=== PATIENT | male | born 1990 | race Caucasian/White ===

== ENCOUNTER 2019-12-22 15:30 | Outpatient (RCR) | payer OTHER, SELFPAY ==
--- NOTE | 2019-11-22 17:00 | PTOPEVAL ---
Thank you for referring this patient to [facility]. Please review, sign, date and return this plan of care AARON. Pt referred to therapy due to left knee pain. He requires additional skilled therapy 2x/wk x 4 wk to address poor movement pattern with squats and lunges, soft tissue restrictions and increased pain with daily activities. I agree with and certify that the following plan of care is medically necessary. Referring Physician Date Attending Provider: Chapis Squires NP Referring Provider: *PT Outpatient Evaluation Start: 11/22/19 15:18 Freq: Status: Active Protocol: Document 11/22/19 15:20 CAP (Rec: 11/22/19 16:27 CAP [email or web address]) Therapy Assessment Status Assessment Status Assessment Status Evaluation Outpatient Past Medical History Musculoskeletal History Hx Other Musculoskeletal Disorders Yes: left knee meniscus tear Evaluation Information Problem Diagnosis left knee pain Onset 09/21 Cause squating Subjective Information He reports knee pain due to Query Text:As Reported By Patient/ performing max squating Family activities. He was attempting to squat~500#. He denies popping with the movement, but pain in the knee when it happened. Pain in the top/ bottom of knee and and posterior aspect of knee. He has been icing daily with use of compression sleeve. He has not performed any lifting act with his LE, but cont to perform UE resistance act. Occasionally performs stretching. He was performing bike or running for cardio, but he has not performed cardio since the injury. He has not been performing heavy lifting at work. He has been avoiding use of left LE with squating or getting off low surfaces. He had injured his left knee in high school during pole vaulting activity. He was DX with meniscus injury, but he does not remember if ligaments were torn. He received therapy at the time. He works as an [employer]
--- NOTE | 2019-12-23 08:18 | PTOPEVAL ---
Thank you for referring this patient to [facility]. Please review, sign, date and return this plan of care AARON. Pt has been seen for PT services from 11/22/19-12/22/19 for 9 visits. Pt has improved knee pain, LE strength and performance with high level dynamic and resistance activities. He has reached max potential with skilled therapy with therapy goals achieved. DC skilled PT at this time I agree with and certify that the following plan of care is medically necessary. Referring Physician Date Admitting Provider: Attending Provider: Chapis Squires NP Referring Provider: *PT Outpatient Re-Evaluation/Discharge Start: 11/22/19 15:18 Freq: Status: Active Protocol: Document 12/22/19 15:35 CAP (Rec: 12/22/19 16:01 CAP [email or web address]) Therapy Assessment Status Assessment Status Assessment Status Re-evaluation Outpatient Past Medical History Musculoskeletal History Hx Other Musculoskeletal Disorders Yes: left knee meniscus tear Evaluation Information Problem Diagnosis left knee pain Onset 09/21 Cause squating Subjective Information States he is not having pain Query Text:As Reported By Patient/ with his fitness routine. He Family has been performing the max squats with the 500#. He is performing fitness routine without increased pain . He is performing the foam roller and stretching everytime he works-out. Denies problems with cardio conditioning act. Pain Assessment Timing of Pain Assessment Timing of Pain Assessment Re-assessment Pain Scale Pain Scale Used Numeric (1 - 10) Self Report Pain Assessment Left Knee(s) Reported Pain Level 0 Pain Description Aching Pain Frequency Intermittent Current Pain Intensity 0 Greatest Pain Intensity 2 Pain Score Pain Score 0: Self Report Lower Extremity Muscle Strength Testing Hip Strength Bilateral Hip Flexion Strength 5 Normal Hip Extension Strength 5 Normal Hip Abduction Strength 4 Good Hip Strength Comments 3+/5 on left and 4/5 on right Knee Strength Bilateral Knee Flexion Strength 5 Normal Knee Extension Strength 5 Normal Muscle Length Testing Muscle Length Testing Two-Joint Hip Flexor Shortened Muscles Short (R) Iliopsoas,Short (L) Iliopsoas,Short (R) Ilial Tib Band,Short (L) Ilial Tib Band Left Hamstring Length -11 Query Text:(90 - 90 Position) Right Hamstring Length -15 Query Text:(90 - 90 Position)
== END 2020-01-21 10:57 | disposition home or self-care (01) ==
LOC: ANHPT 15:30
PROVIDERS: PCP Internal Medicine; Visit Provider Nurse Practitioner
DX: M25.562 Pain in left knee (principal)
CPT/HCPCS: 97110; 97161

== ENCOUNTER 2021-03-13 14:14 | Outpatient (CLI) | payer OTHER, SELFPAY ==
--- NOTE | ~2021-03-13 | US_ITS ---
EXAMINATION: US scrotum doppler EXAM DATE: 03/13/2021 14:50 INDICATION: N50.812 - Left testicular pain . Symptoms one week, states injury by exercise. TECHNIQUE: Multiple grayscale and Doppler images of the testicles and scrotum were obtained bilateral ly. There is no prior study for comparison. FINDINGS: No evidence of testicular capsular rupture. Right testicle measures 4.5 x 3.4 x 2.3 cm and is morphologically normal. Low resistance Doppler jeremy w confirmed. The epididymis is unremarkable. There is no hydrocele or varicocele. Left testicle measures 4.2 x 3.2 x 2.4 cm, approximately 5 x 10 mm region near the mediastinum which is slightly hypoechoic compared to the other regions of the testicle parenchyma, appearance and locat ion consistent with rete testes. Low resistance Doppler flow confirmed. The epididymis is unremarkab le. There is no hydrocele or varicocele. IMPRESSION: 1. Small left testicular hypoechoic region, likely rete testes, not a clinically significant finding . Reviewed, dictated and finalized at location A. IMPRESSION: 1. Small left testicular hypoechoic region, likely rete testes, not a clinical ly significant finding.
== END 2021-03-13 14:15 | disposition home or self-care (01) ==
PROVIDERS: PCP Internal Medicine; Visit Provider Nurse Practitioner
DX: N50.812 Left testicular pain (principal)
CPT/HCPCS: 76870; 93976

== ENCOUNTER → 2021-06-19 05:11 | Outpatient (CLI) | payer OTHER, SELFPAY ==
[2021-06-20 16:04] LABS: SARS-CoV-2 RNA PCR Negative
== END ==
PROVIDERS: PCP Internal Medicine; Visit Provider Clinical Nurse Specialist
DX: J02.9 Acute pharyngitis, unspecified (principal); Z20.822 Contact with and (suspected) exposure to COVID-19
CPT/HCPCS: C9803; U0003; U0005

== ENCOUNTER → 2022-08-22 15:19 | Outpatient (CLI) | payer OTHER, SELFPAY ==
--- NOTE | ~2022-08-22 | XR_ITS ---
EXAMINATION: XR knee LT 3V DATE: 08/22/2022 17:31 INDICATION: Left knee pain. TECHNIQUE: 3 views of left knee were obtained. COMPARISON: Left knee radiographs 11/09/19 FINDINGS: Bone alignment is normal. No fracture. Joint spaces are well maintained. There is no knee j oint effusion. IMPRESSION: 1. Normal left knee. Reviewed, dictated and finalized at location A. IMPRESSION: 1. Normal left knee.
== END ==
PROVIDERS: PCP Nurse Practitioner; Visit Provider Nurse Practitioner
DX: M25.562 Pain in left knee (principal)
CPT/HCPCS: 73562

== ENCOUNTER 2023-01-28 18:55 | Emergency (ER) | payer OTHER, SELFPAY ==
[2023-01-28 19:06] VITALS: BP 129/74; PULSE 88; RESP 16; TEMP 36.9; O2SAT 100
--- NOTE | 2023-01-28 19:13 | ED.URI ---
HPI - URI/Sore Throat General Chief Complaint: Upper Respiratory Infection Stated Complaint: Headache/Right Ear Irritation Time Seen by Provider: 01/28/23 19:10 Source: patient Mode of arrival: ambulatory Limitations: no limitations History of Present Illness HPI Narrative: Raphael is a 32-year-old male patient presenting to the clinic today with complaints of dizziness, headache, and right ear pain. He reports the symptoms began this morning. States he had sore throat, runny nose, cough, and nasal congestion x1 week Related Data Allergies Allergy/AdvReac Type Severity Reaction Status Date / Time No Known Allergies Allergy Verified 01/28/23 19:06 Review of Systems Review of Systems: Pertinent positives per HPI. Patient denies any fever, chills, rash, headache, visual changes, cough, shortness of breath, chest pain, palpitations, nausea, vomiting, diarrhea, constipation, abdominal pain, or any urinary issues. PMFSH Surgical History Surgical History [place] teeth extracted Family History Family History Mother No problems noted. Father Diabetes mellitus Social History Social History Smoking status: Never smoker Alcohol intake: current Alcohol use details: social Lack of Transportation: No Lack of Food: Never True Current Housing: I Have Housing Concerned About Future Housing: No Difficulty Paying Gas/Electric Bills: No Difficulty Paying for Meds: No Currently Unemployed: No Education: Trade/Vocational Certificate Difficulty w/ Childcare or Family Care: No Comments At the time of my signature, I reviewed and agree with the nursing past medical, surgical, social, and family history. There is no relevant family history pertinent to the patient complaint. Exam Narrative: General: Well-developed, well nourished, in no apparent distress Head: Normocephalic, atraumatic Eyes: Pupils equally round and reactive to light bilaterally, EOM intact, sclera and conjunctive clear, no discharge, lids normal Ears: Left tMs intact and clear, right TM intact, bulging, red, ear canals clear, no drainage, grossly hearing normal. Nose: Nares patent, clear nasal discharge, moderate to severe inflammation, frontal sinus tenderness. Mouth: Oral pharynx red without lesions or masses, good dentition, MMM. Neck: Supple, trachea midline, no enlargement of anterior or posterior cervical nodes, no thyroid masses or goiter palpable. Cardio: Regular rate and rhythm, s1 and s2 normal, no murmur appreciated. Resp: Clear to auscultation bilaterally, no rhonchi, rales, wheezing or rubs Course Course Emergency Course: Portions of this record may have been created with voice recognition software. Level of Care: Express Care Visit Vital Signs Vital signs: Vital Signs Temperature 36.9 C 01/28/23 19:06 Pulse Rate 88 01/28/23 19:06 Respiratory Rate 16 01/28/23 19:06 Blood Pressure 129/74 01/28/23 19:06 Pulse Oximetry 100 01/28/23 19:06 Oxygen Delivery Room Air 01/28/23 19:06 Temperature 36.9 C 01/28/23 19:06 Pulse Rate 88 01/28/23 19:06 Respiratory Rate 16 01/28/23 19:06 Blood Pressure 129/74 01/28/23 19:06 Pulse Oximetry 100 01/28/23 19:06 Oxygen Delivery Room Air 01/28/23 19:06 Vital signs reviewed MDM - URI/Sore Throat MDM Narrative Medical decision making narrative: At the time of visit patient is resting comfortably on exam table. I suspect patient has sinusitis with right otitis media. Prescription for prednisone and Augmentin was sent to pharmacy and supportive measures were discussed with the patient he voiced understanding discharge instructions agrees to treatment plan. Differential Diagnosis Differential diagnosis: Likely upper respiratory infection, sinusitis, viral infection,
== END 2023-01-28 19:19 | disposition home or self-care (01) ==
PROVIDERS: Emergency Provider Nurse Practitioner Family; PCP Internal Medicine
DX: H66.91 Otitis media, unspecified, right ear (principal); J32.9 Chronic sinusitis, unspecified
CPT/HCPCS: 99213; G0463

== ENCOUNTER 2023-04-15 01:23 | Day surgery (SDC) | payer OTHER, SELFPAY ==
[2023-04-08 14:26] VITALS: BMI 29.1
--- NOTE | 2023-04-08 14:30 | SUR.PREOP ---
Addendum entered by Ruby Torres RN 04/08/23 14:39: PT TO ARRIVE AT 11:15 FOR PROCEDURE AT 13:15. 20 OUNCES OF CLEAR LIQUID BEFORE 10:15 THAT MORNING... PT CALLED AND UPDATED. VERBALIZED UNDERSTANDING Original Note: Report to the Outpatient Waiting Room, entrance under the green pavilion located off [facility], at time 12:15 on date 04/15/23. Planned Procedure Time: 13:15. Time changes happen often and if your time is changed the preop area will call you the afternoon before. - You and your visitor will be asked to self-screen and do not enter if you have any COVID symptoms. - A mask is optional within the hospital at this time. Patients may have clear liquids (water, carbonated beverages, clear teas, apple juice) until 3 hours prior to surgery with a maximum of 20 ounces. - No food from midnight until time of surgery BEFORE 11:15AM - Infants may have breast milk until 4 hours before surgery, infant formula 6 hours prior to surgery. - Children will be allowed to drink immediately following surgery. If applicable, please bring a bottle or sippy cup to assist with drinking. Juice, water, soda, and popsicles are readily available. For infants on formula, please bring formula the day of surgery. Pacifiers are allowed. Take the following medications with a SIP of water the morning of surgery: ___N/A DO NOT STOP ANY OF YOUR OTHER PRESCRIPTION MEDICATIONS PRIOR TO SURGERY ?EXCEPT THE FOLLOWING Medications to discontinue per physician ADVIL PER ORDER Date to take last dose Please no make-up, nail palauan, hairspray, perfume, deodorant, or body powder the day of surgery. No jewelry (including any body piercings) or valuables the day of surgery, leave them at home. Please take a shower or bath the night before, or the morning of, surgery with an antibacterial soap. Wear comfortable, loose fitting clothing. Children are encouraged to wear pajamas. - Jewelry must be removed prior to entering the operating room. Rings and piercings that are not removed may be cut off. - The hospital will not accept responsibility for valuables. - Please leave all valuables, including medications, at home the day of surgery. If you are going home after surgery, a licensed sprinkler driver must drive you home. - NO public transportation without another adult if you receive anesthesia. - We recommend that an adult stay with you for 24 hours following discharge. - We also recommend that you do not drive, make important decision, drink alcoholic beverages, or take any drugs that were not prescribed by your health care provider for at least 24 hours after your discharge time. For Pediatric surgeries, we recommend two adults accompany the child home. Follow any additional instructions given to you from your surgeon. If you or anyone in your household have experienced Covid symptoms in the past week, please notify your surgeon or the nurse liaison at the phone number below for possible testing. Telephone instructions given to __PATIENT and asked if any additional questions and then verbalized understanding. Patient advised to call surgeon office or pre surgery nurse liaison [phone] if any additional questions.
--- NOTE | 2023-04-14 08:41 | P.HP_ITS ---
H&P: HPI History of Present Illness Date/Time: 04/14/23 08:41 Chief Complaint: recurrent tonsillitis chronic tonsillitis adenoid hypertrophy snoring Narrative: planned procedure Review of Systems Review of Systems: All systems reviewed & are unremarkable except as noted in HPI and below [facility] Surgical History Surgical History [place] teeth extracted Family History Family History Mother No problems noted. Father Diabetes mellitus Social History Social History Smoking status: Never smoker Alcohol intake: current Alcohol use details: social Lack of Transportation: No Lack of Food: Never True Current Housing: I Have Housing Concerned About Future Housing: No Difficulty Paying Gas/Electric Bills: No Difficulty Paying for Meds: No Currently Unemployed: No Education: Trade/Vocational Certificate Difficulty w/ Childcare or Family Care: No Living arrangements: alone Spiritual care concerns: No Meds Home Medications and Allergies Home Medications Medication Instructions Recorded Confirmed Type ibuprofen 200 mg tablet (Advil) 400 mg PO DAILY 04/08/23 04/08/23 History Allergies Allergy/AdvReac Type Severity Reaction Status Date / Time No Known Allergies Allergy Verified 03/07/23 11:42 Exam Narrative: large tonsils chronic appearing large adenoids Assessment and Plan Assessment and plan (1) Snoring: Code(s): R06.83 - Snoring Status: Acute Assessment and Plan: ?plan OR tonsillectomy adenoidectomy risks were discussed including bleeding infection need for time off work need for time off school the risks of narcotic usage change in taste change in swallow failure to resolve symptoms change in taste and swallow can last months or be permanent.? 3-5% chance of postop bleeding.? Damage to any structure above the clavicles by myself damage to any structure during the induction and or maintenance of anesthesia.? Patient voiced understanding and agreed. (2) Adenoid hypertrophy: Code(s): J35.2 - Hypertrophy of adenoids Status: Acute (3) Chronic tonsillitis: Code(s): J35.01 - Chronic tonsillitis Status: Acute (4) Recurrent tonsillitis: Code(s): J03.91 - Acute recurrent tonsillitis, unspecified Status: Acute
[2023-04-15] VITALS (7 sets, daily range): BP systolic 102–133; BP diastolic 58–86; PULSE 51–93; RESP 12–20; TEMP 36.6–36.7; O2SAT 99–100
--- NOTE | 2023-04-15 07:22 | WPDHPUPDATE1 ---
History and Physical Update Update Date/Time: 04/15/23 07:22 History and Physical has been reviewed, including an updated exam of the patient. There are NO changes in the patient's condition. Risks, benefits, and alternatives have been discussed and questions answered. Patient agrees to proceed with procedure.
--- NOTE | 2023-04-15 09:51 | WPDANESEPPF ---
Anes - Initial Pre Proc Eval Procedure: Operation Date: 04/15/23 13:15 Proposed Procedures p Tonsillectomy And Adenoidectomy - Rajeev Zhu MD Date/Time: 04/15/23 09:51 Surgeon: Rajeev Zuh MD Pre Op Diagnosis: chronic tonsillitis, hypertrophy adenoids Patient Data Age: 33 Gender: M Height: 1.65 m Weight: 79.38 kg Allergies Allergy/AdvReac Type Severity Reaction Status Date / Time No Known Allergies Allergy Verified 03/07/23 11:42 Home Medications Medication Instructions Recorded Confirmed Type ibuprofen 200 mg tablet (Advil) 400 mg PO DAILY 04/08/23 04/15/23 History Patient hx anesthesia problems: none Family hx anesthesia problems: none Results Review: All pre-operative results and documents have been reviewed as part of the pre-operative evaluation. [facility] Surgical History Surgical History [place] teeth extracted Family History Family History Mother No problems noted. Father Diabetes mellitus Social History Social History Smoking status: Never smoker Alcohol intake: current Alcohol use details: social Lack of Transportation: No Lack of Food: Never True Current Housing: I Have Housing Concerned About Future Housing: No Difficulty Paying Gas/Electric Bills: No Difficulty Paying for Meds: No Currently Unemployed: No Education: Trade/Vocational Certificate Difficulty w/ Childcare or Family Care: No Living arrangements: alone Spiritual care concerns: No Anes - Eval Final PreProcedure Day of Procedure 04/15/23 09:51 Patient weight: overweight Heart: regular rate and rhythm Lungs: clear to auscultation Airway: Mallampati scale class II Neurological: alert and oriented Last oral intake: >/= 8 hours ASA classification: II Emergent: no Anesthetic plan: proceed Anesthesia type and monitoring: general ETT and standard monitoring Results Review: All pre-operative results and documents have been reviewed as part of the pre-operative evaluation. Informed Consent: The patient's anesthetic plan and its attendant risks and benefits were discussed with the patient/family/POA. Questions were solicited and answers provided to the satisfaction of the patient/family/POA.
[2023-04-15] MEDS: ACETAMINOPHEN 500 MG TABLET 1000 MG PO (11:52)
[2023-04-15] MEDS: LACTATED RINGERS 1,000 ML 30 ML IV CONT (11:55)
[2023-04-15] MEDS: fentaNYL CITRATE INJ (*CRX) 100 MCG/2 ML VIAL 25 MCG IV PUSH ×2 (15:59→16:15)
--- NOTE | 2023-04-15 16:04 | W.PM.PROC2 ---
Procedure Note - Detailed Date of Procedure 04/15/23 Pre-op Diagnosis chronic tonsillitis, hypertrophy adenoids Post-op Diagnosis Same Procedure Performed Gillian Surgeon Rajeev Zhu MD Anesthesia General Indications see above Findings really scarred down chronic appearing tonsils minimal bleeding Description of Procedure patient identified consent verified. Patient brought operating room. Time-out performed. General anesthesia induced endotracheal tube secured in the airway. Patient prepped draped positioned procedure confirmed 2nd time-out performed. McIvor mouth gag inserted to reveal tonsils described above. They were dissected in extracapsular plane using Bovie electrocautery setting of 10. Any bleeding was controlled with Bovie suction electrocautery at a setting of 12. In between tonsils as this was a bilateral procedure, the McIvor mouth gag was lowered to allow blood flow to return to the tongue. At the end of the procedure the McIvor mouth gag lowered for 30 seconds and reopened to reveal no further bleeding. Red rubber catheter was inserted transnasally the adenoids reviewed they were centrally non-existent. Red rubber catheter McIvor mouth gag removed. Blood loss about 3 cc. Care the patient given Anesthesiology. I performed all dictated portions procedure. No complications. Patient tolerated the procedure well. Estimated Blood Loss 3 Drains No Packing No Pathology Yes Complications No immediate complications Condition Stable Disposition PACU [facility] Billing Surgery - Charge Forward: Surgery Billing
== END 2023-04-15 17:15 | disposition home or self-care (01) ==
PROVIDERS: PCP Nurse Practitioner; Visit Provider Otolaryngology
PROC: (CPT 42821; principal; 2023-04-15 13:15)
DX: J35.3 Hypertrophy of tonsils with hypertrophy of adenoids (principal); R06.83 Snoring
CPT/HCPCS: 42821; 88300; A9270; J1100; J2250; J2405; J2704; J2710; J3010; J7120

== ENCOUNTER 2023-04-20 08:04 | Emergency (ER) | payer OTHER, SELFPAY ==
[2023-04-20 08:09] VITALS: BP 134/90; PULSE 72; RESP 18; TEMP 36.4; O2SAT 100
--- NOTE | 2023-04-20 09:30 | ED.GENADULT ---
HPI - General Adult General Chief complaint: Unspecified Stated complaint: post t&a bleed Time Seen by Provider: 04/20/23 08:12 History of Present Illness HPI narrative: Patient is a 33-year-old male who presents ER with concerns about postoperative tonsillar bleeding. He had his tonsils removed on 04/15/[address] Zhu. He was spitting out quarter-sized pieces of blood this morning. Since slowed down. No runny nose or congestion. He does have sore throat no cough. Has not had any previous bleeding. He has not yet contacted Dr. Zhu. Related Data Home Medications Medication Instructions Recorded Confirmed ibuprofen 200 mg tablet (Advil) 400 mg PO DAILY 04/08/23 04/15/23 Allergies Allergy/AdvReac Type Severity Reaction Status Date / Time No Known Allergies Allergy Verified 03/07/23 11:42 Review of Systems Review of Systems: All systems reviewed & are unremarkable except as noted in HPI and below Constitutional: Constitutional: Denies chills and Denies fever(s) ENT: Denies epistaxis, Denies sinus pressure and Reports sore throat Comments: Spitting up blood Respiratory: Respiratory: Denies cough and Denies dyspnea Gastrointestinal: Gastrointestinal: Denies abdominal pain, Denies nausea, Denies vomiting and Denies hematemesis PMFSH Surgical History Surgical History (Updated 04/20/23 @ 09:32 by Joselo Moss MD) History of tonsillectomy [place] teeth extracted Family History Family History Mother No problems noted. Father Diabetes mellitus Social History Social History Smoking status: Never smoker Alcohol intake: current Alcohol use details: social Lack of Transportation: No Lack of Food: Never True Current Housing: I Have Housing Concerned About Future Housing: No Difficulty Paying Gas/Electric Bills: No Difficulty Paying for Meds: No Currently Unemployed: No Education: Trade/Vocational Certificate Difficulty w/ Childcare or Family Care: No Living arrangements: alone Spiritual care concerns: No Exam Narrative: GENERAL: Well-appearing, well-nourished, and in no acute distress. HEAD: Normocephalic, atraumatic. EYES: PERRL and EOMI. ENT: Mucous membranes moist. White granulation tissue at the tonsillar sites. No active bleeding identified by this physician. Patient with blood-streaked sputum and emesis bag. NECK: Supple. NEURO: Alert and oriented x3. PSYCH: Normal mood and affect. Course Course Emergency Course: ENT to bedside. Identified source of bleeding and cauterized. Patient appropriate for discharge home. Vital Signs Vital signs: Vital Signs Temperature 97.5 F L 04/20/23 08:09 Pulse Rate 72 04/20/23 08:09 Respiratory Rate 18 04/20/23 08:09 Blood Pressure 134/90 04/20/23 08:09 Pulse Oximetry 100 04/20/23 08:09 Oxygen Delivery Room Air 04/20/23 08:09 Temperature 97.5 F L 04/20/23 08:09 Pulse Rate 72 04/20/23 08:09 Respiratory Rate 18 04/20/23 08:09 Blood Pressure 134/90 04/20/23 08:09 Pulse Oximetry 100 04/20/23 08:09 Oxygen Delivery Room Air 04/20/23 08:09 Medical Decision Making Vital Signs Vital Signs: Vital Signs Temperature 97.5 F L 04/20/23 08:09 Pulse Rate 72 04/20/23 08:09 Respiratory Rate 18 04/20/23 08:09 Blood Pressure 134/90 04/20/23 08:09 Pulse Oximetry 100 04/20/23 08:09 Oxygen Delivery Room Air 04/20/23 08:09 Temperature 97.5 F L 04/20/23 08:09 Pulse Rate 72 04/20/23 08:09 Respiratory Rate 18 04/20/23 08:09 Blood Pressure 134/90 04/20/23 08:09 Pulse Oximetry 100 04/20/23 08:09 Oxygen Delivery Room Air 04/20/23 08:09 Discharge Plan Discharge Clinical Impression: Postoperative haemorrhage of tonsil Patient Disposition: Home, Self-Care Condition: Stable Additional Instructions:
[2023-04-20] MEDS: BENZOCAINE/TETRACAINE SPRAY (*SP) 56 ML AEROSOL 1 SPRAY MUCOUS MEM (09:46)
--- NOTE | 2023-04-20 10:03 | WPDPROCEDUR ---
Procedures Other Procedures Procedure 1: Other Procedure: Control of post tonsillectomy hemorrhage with siliver nitrate. all the consents obtained right-sided suction cleaned of clot small bleeding vessel cauterized with silver nitrate x1 no further bleeding was noted. Patient tolerated procedure very well his anesthetized with topical Cetacaine or benzocaine I believe.
--- NOTE | 2023-04-20 10:03 | WPDCN ---
Assessment and Plan Assessment and plan (1) Postoperative haemorrhage of tonsil: Status: Acute Assessment and Plan: with any more bleeding gargle with warm salt water. Patient will call me if it bleeds again next step would be more aggressive chemical cautery versus operative cautery. HPI Data of Consult Date/Time: 04/20/23 10:03 Primary Care Provider: Rajeev Zhu MD Consult Narrative Reason for consult: Post tonsillectomy hemorrhage. Narrative: Raphael Sullivan is a 33 year old male Reported a large clot from right-sided will large clot he looked in there was a smaller clot on the right side as well presents for further evaluation treatment. He is status post tonsillectomy 5 days ago. Review of Systems Review of Systems: All systems reviewed & are unremarkable except as noted in HPI and below [facility] History Surgical History (Updated 04/20/23 @ 09:32 by Joselo Moss MD) History of tonsillectomy [place] teeth extracted Family History Family History Mother No problems noted. Father Diabetes mellitus Social History Social History Smoking status: Never smoker Alcohol intake: current Alcohol use details: social Lack of Transportation: No Lack of Food: Never True Current Housing: I Have Housing Concerned About Future Housing: No Difficulty Paying Gas/Electric Bills: No Difficulty Paying for Meds: No Currently Unemployed: No Education: Trade/Vocational Certificate Difficulty w/ Childcare or Family Care: No Living arrangements: alone Spiritual care concerns: No Meds Home Medications and Allergies Home Medications Medication Instructions Recorded Confirmed Type ibuprofen 200 mg tablet (Advil) 400 mg PO DAILY 04/08/23 04/15/23 History oxycodone 5 mg tablet 5 mg PO Q8H PRN pain #30 tabs 04/15/23 Rx Allergies Allergy/AdvReac Type Severity Reaction Status Date / Time No Known Allergies Allergy Verified 03/07/23 11:42 Vital Signs Vital Signs - 24 hr 04/20/23 08:09 Temperature 36.4 C L Pulse Rate 72 Respiratory Rate 18 Blood Pressure 134/90 Pulse Oximetry 100 Oxygen Delivery Room Air Exam Narrative: Left-sided clean right side has a mid pole small clot see procedure note for how this was managed. Patient tolerated everything very well
[2023-04-20 10:41] VITALS: BP 137/87; PULSE 76; RESP 18; O2SAT 98
== END 2023-04-20 10:40 | disposition home or self-care (01) ==
PROVIDERS: Emergency Provider Emergency Medicine; PCP Otolaryngology
DX: K91.841 Postprocedural hemorrhage of a digestive system organ or structure following other procedure (principal); Y83.8 Other surgical procedures as the cause of abnormal reaction of the patient, or of later complication, without mention of misadventure at the time of the procedure
CPT/HCPCS: 42960; 99283; A9270

== ENCOUNTER 2023-04-21 02:35 | Day surgery (SDC) | payer OTHER, SELFPAY ==
[2023-04-21] VITALS (19 sets, daily range): BP systolic 111–147; BP diastolic 67–97; PULSE 74–106; RESP 11–20; TEMP 36.9–37.2; O2SAT 97–100
--- NOTE | 2023-04-21 02:46 | ED.GENADULT ---
HPI - General Adult General Chief complaint: Unspecified Stated complaint: coughing up blood, tonsils removed friday. Time Seen by Provider: 04/21/23 02:40 History of Present Illness HPI narrative: This is a 33-year-old male presenting ED with chief complaint of postop tonsillar bleeding. He is postoperative day 6 from a tonsillectomy performed by Dr. Zhu. Yesterday he did require cautery in the emergency department for bleeding. He was doing well until approximately 1:00 a.m. when he woke up was spitting out significant amounts of blood. He is managing his own airway. No shortness of breath. No other complaints. Related Data Home Medications Medication Instructions Recorded Confirmed ibuprofen 200 mg tablet (Advil) 400 mg PO DAILY 04/08/23 04/15/23 Allergies Allergy/AdvReac Type Severity Reaction Status Date / Time No Known Allergies Allergy Verified 04/21/23 02:35 [facility] Surgical History Surgical History (Updated 04/20/23 @ 09:32 by Joselo Moss MD) History of tonsillectomy [place] teeth extracted Family History Family History Mother No problems noted. Father Diabetes mellitus Social History Social History Smoking status: Never smoker Alcohol intake: current Alcohol use details: social Lack of Transportation: No Lack of Food: Never True Current Housing: I Have Housing Concerned About Future Housing: No Difficulty Paying Gas/Electric Bills: No Difficulty Paying for Meds: No Currently Unemployed: No Education: Trade/Vocational Certificate Difficulty w/ Childcare or Family Care: No Living arrangements: alone Spiritual care concerns: No Exam Narrative: APPEARANCE:Patient appears uncomfortable Head: physical exam revealed yellow post surgical tissue over the left tonsil and a slow bleed on the right tonsil. EYES: EOMI, NOSE: Atraumatic NECK: Trachea midline RESPIRATORY: No increased rate of breathing CARDIOVASCULAR: RRR, ABDOMINAL: Non-distended MUSCULOSKELETAl: No obvious deformities NEURO: Alert. Moving 4/4 extremities SKIN:: Warm, dry. Normal color PSYCHIATRIC: Normal affect Course Vital Signs Vital signs: Vital Signs Pulse Rate 103 H 04/21/23 02:42 Respiratory Rate 13 04/21/23 02:42 Blood Pressure 119/69 04/21/23 02:42 Pulse Oximetry 100 04/21/23 02:42 Oxygen Delivery Room Air 04/21/23 02:42 Pulse Rate 78 04/21/23 06:02 Respiratory Rate 12 04/21/23 06:02 Blood Pressure 120/67 04/21/23 06:02 Pulse Oximetry 97 04/21/23 06:02 Oxygen Delivery Room Air 04/21/23 02:42 Medical Decision Making MDM Narrative Medical decision making narrative: -Presentation: 33-year-old male presenting with postop bleeding from tonsillectomy. 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 No white count. Metabolic panel normal Dx tests considered but not ordered: none -Procedures: none -Interventions:Hydrogen peroxide gargle, Atomized lidocaine w/ epi -Shared decision making / Disposition: Case was discussed with Dr. Zhu is going to take the patient to the operating room for further management. -RX Vital Signs Vital Signs: Vital Signs Pulse Rate 103 H 04/21/23 02:42 Respiratory Rate 13 04/21/23 02:42 Blood Pressure 119/69 04/21/23 02:42 Pulse Oximetry 100 04/21/23 02:42 Oxygen Delivery Room Air 04/21/23 02:42 Pulse Rate 78 04/21/23 06:02 Respiratory Rate 12 04/21/23 06:02 Blood Pr
[2023-04-21 02:58] LABS: Basophils Percent Auto 0.5 % (0.2-1.2); Eosinophils Absolute Auto 0.1 K/mm3 (0-0.3); Eosinophils Percent Auto 1.5 % (0-4.4); Hematocrit 46.2 % (42.0-52.0); Hemoglobin 15.7 g/dL (14.0-18.0); Immature Granulocyte Absolute 0.05 K/mm3 (0.00-0.031); Immature Granulocyte Percent A 0.6 % (0-0.5); Lymphocytes Absolute Auto 3.72 K/mm3 (0.9-3.2); Lymphocytes Percent Auto 42.2 % (18.3-44.2); Mean Corpuscular Hemoglobin 31.3 pg (26-34); Mean Platelet Volume 9.7 fl (7.4-10.4); Monocytes Absolute Auto 0.8 K/mm3 (0.1-0.6); Monocytes Percent Auto 9.4 % (2.6-8.5); Neutrophils Percent Auto 45.8 % (45.5-73.1); Platelet Count Result 273 k/mm3 (150-375); Red Blood Count 5.02 M/mm3 (4.6-6.20); Red Cell Distribution Width 11.6 % (11.5-14.5); White Blood Count 8.8 K/mm3 (4.5-10.0)
[2023-04-21] MEDS: HYDROGEN PEROXIDE 3% SOLN(*SP) 473 ML BOTTLE 10 ML IRRIGATION (02:58)
[2023-04-21] MEDS: LIDO 1%/EPINEPHRINE 1:100,000 10 ML VIAL (03:03)
--- NOTE | 2023-04-21 03:03 | PC.NURSE ---
Pt to gargle 50/50 mix of water and H2O2 to help stop bleeding. Dr. Lee administered 0.5 ml of Lid with 1% epi on tonsils. Pt to repeat process.
[2023-04-21 03:07] LABS: Anion Gap 14 mmol/L (8-16); Blood Urea Nitrogen 14 mg/dL (9-20); Calcium 9.7 mg/dL (8.4-10.2); Carbon Dioxide 28 mmol/L (22-30); Chloride 99 mmol/L (98-107); Estimated CRCL calculation 78 ml/min; Estimated Glomerular Filt Rate > 60; Glucose 112 mg/dL (65-110); Potassium 3.9 mmol/L (3.4-5.0); Sodium 141 mmol/L (137-145)
--- NOTE | 2023-04-21 07:03 | PM.IMHP ---
H&P: HPI History of Present Illness Date/Time: 04/21/23 07:03 Chief Complaint: A bleeding yesterday status post tonsillectomy 6 days ago. Controlled with silver nitrate patient reports bleeding of very early this morning presented to ER. Diagnosis would be post tonsillectomy hemorrhage Narrative: urgent/emergent procedure Review of Systems Review of Systems: All systems reviewed & are unremarkable except as noted in HPI and below [facility] Surgical History Surgical History (Updated 04/20/23 @ 09:32 by Joselo Moss MD) History of tonsillectomy [place] teeth extracted Family History Family History Mother No problems noted. Father Diabetes mellitus Social History Social History Smoking status: Never smoker Alcohol intake: current Alcohol use details: social Lack of Transportation: No Lack of Food: Never True Current Housing: I Have Housing Concerned About Future Housing: No Difficulty Paying Gas/Electric Bills: No Difficulty Paying for Meds: No Currently Unemployed: No Education: Trade/Vocational Certificate Difficulty w/ Childcare or Family Care: No Living arrangements: alone Spiritual care concerns: No Meds Home Medications and Allergies Home Medications Medication Instructions Recorded Confirmed Type ibuprofen 200 mg tablet (Advil) 400 mg PO DAILY 04/08/23 04/15/23 History oxycodone 5 mg tablet 5 mg PO Q8H PRN pain #30 tabs 04/15/23 Rx Allergies Allergy/AdvReac Type Severity Reaction Status Date / Time No Known Allergies Allergy Verified 04/21/23 02:35 Vital Signs Vital Signs - 24 hr 04/21/23 02:42 04/21/23 02:50 04/21/23 03:01 Pulse Rate 103 H 82 106 H Respiratory Rate 13 16 13 Blood Pressure 119/69 119/69 141/97 H Pulse Oximetry 100 100 98 Oxygen Delivery Room Air 04/21/23 03:36 04/21/23 03:46 04/21/23 04:02 Pulse Rate 75 82 77 Respiratory Rate 13 15 18 Blood Pressure 115/79 127/78 111/72 Pulse Oximetry 100 98 97 Oxygen Delivery 04/21/23 04:16 04/21/23 04:31 04/21/23 06:02 Pulse Rate 80 78 78 Respiratory Rate 11 L 12 12 Blood Pressure 116/72 122/69 120/67 Pulse Oximetry 97 98 97 Oxygen Delivery 04/21/23 04:45 04/21/23 06:32 04/21/23 06:32 Pulse Rate 77 96 96 Respiratory Rate 12 16 16 Blood Pressure 121/67 114/72 114/72 Pulse Oximetry 97 97 97 Oxygen Delivery Exam Narrative: no clot but there was a small bleeding vessel on the right side mid vault. H&P: Results Labs Labs: Short CBC 04/21/23 Range/Units 02:52 WBC 8.8 (4.5-10.0) K/mm3 Hgb 15.7 (14.0-18.0) g/dL Hct 46.2 (42.0-52.0) % Plt Count 273 (150-375) k/mm3 BMP 04/21/23 02:52 Sodium 141 Potassium 3.9 Chloride 99 Carbon Dioxide 28 BUN 14 Creatinine 1.20 Glucose 112 H Calcium 9.7 Assessment and Plan Assessment and plan (1) Post-tonsillectomy hemorrhage: Code(s): J95.830 - Postprocedural hemorrhage of a respiratory system organ or structure following a respiratory system procedure Status: Acute Assessment and Plan: plan operating room for control of post tonsil tonsillectomy hemorrhage with Bovie electrocautery. Risks were discussed including given general risks bleeding infection but again the 3-5% chance of bleeding after this is 1 of and does not change this to statistical lots of another event such as bleeding occurring. Patient voiced understanding and agreed.
--- NOTE | 2023-04-21 07:06 | WPDHPUPDATE1 ---
History and Physical Update Update Date/Time: 04/21/23 07:06 History and Physical has been reviewed, including an updated exam of the patient. There are NO changes in the patient's condition. Risks, benefits, and alternatives have been discussed and questions answered. Patient agrees to proceed with procedure.
--- NOTE | 2023-04-21 07:09 | WPDANESEPPF ---
Anes - Initial Pre Proc Eval Procedure: Operation Date: 04/21/23 07:30 Proposed Procedures p Post Op Tonsil Bleed - Rajeev Zhu MD Date/Time: 04/21/23 07:09 Surgeon: Rajeev Zhu MD Pre Op Diagnosis: coughing up blood, tonsils removed friday. Patient Data Age: 33 Gender: M Height: 1.65 m Weight: 80.5 kg Last Vital Signs Pulse 96 04/21/23 06:32 Resp 16 04/21/23 06:32 BP 114/72 04/21/23 06:32 Pulse Ox 97 04/21/23 06:32 O2 Del Method Room Air 04/21/23 02:42 Allergies Allergy/AdvReac Type Severity Reaction Status Date / Time No Known Allergies Allergy Verified 04/21/23 02:35 Home Medications Medication Instructions Recorded Confirmed Type ibuprofen 200 mg tablet (Advil) 400 mg PO DAILY 04/08/23 04/15/23 History oxycodone 5 mg tablet 5 mg PO Q8H PRN pain #30 tabs 04/15/23 Rx Laboratory Tests 04/21/23 02:52 WBC 8.8 K/mm3 (4.5-10.0) RBC 5.02 M/mm3 (4.6-6.20) Hgb 15.7 g/dL (14.0-18.0) Hct 46.2 % (42.0-52.0) MCV 92.0 fl (80-100) MCH 31.3 pg (26-34) MCHC 34.0 g/dl (32-36) RDW 11.6 % (11.5-14.5) Plt Count 273 k/mm3 (150-375) MPV 9.7 fl (7.4-10.4) Immature Gran % (Auto) 0.6 H % (0-0.5) Neut % (Auto) 45.8 % (45.5-73.1) Lymph % (Auto) 42.2 % (18.3-44.2) [place] % (Auto) 9.4 H % (2.6-8.5) Eos % (Auto) 1.5 % (0-4.4) Baso % (Auto) 0.5 % (0.2-1.2) Lymph # (Auto) 3.72 H K/mm3 (0.9-3.2) [place]ner # (Auto) 0.8 H K/mm3 (0.1-0.6) Eos # (Auto) 0.1 K/mm3 (0-0.3) Baso # (Auto) 0.0 K/mm3 (0.0-0.1) Abs Immat Gran (auto) 0.05 H K/mm3 (0.00-0.031) Absolute Neuts (auto) 4.0 K/mm3 (1.3-6.7) Absolute Nucleated RBC 0.0 K/mm3 (0.0-0.012) Nucleated RBC % 0.0 % (0.0-0.2) Sodium 141 mmol/L (137-145) Potassium 3.9 mmol/L (3.4-5.0) Chloride 99 mmol/L (98-107) Carbon Dioxide 28 mmol/L (22-30) Anion Gap 14 mmol/L (8-16) BUN 14 mg/dL (9-20) Creatinine 1.20 mg/dL (0.7-1.3) Estim Creat Clear Calc 78 ml/min Estimated GFR > 60 (59 - ) Glucose 112 H mg/dL (65-110) Calcium 9.7 mg/dL (8.4-10.2) Blood Type O Negative Antibody Screen Negative Patient hx anesthesia problems: none Family hx anesthesia problems: none Results Review: All pre-operative results and documents have been reviewed as part of the pre-operative evaluation. [facility] Surgical History Surgical History History of tonsillectomy [place] teeth extracted Family History Family History Mother No problems noted. Father Diabetes mellitus Social History Social History Smoking status: Never smoker Alcohol intake: current Alcohol use details: social Lack of Transportation: No Lack of Food: Never True Current Housing: I Have Housing Concerned About Future Housing: No Difficulty Paying Gas/Electric Bills: No Difficulty Paying for Meds: No Currently Unemployed: No Education: Trade/Vocational Certificate Difficulty w/ Childcare or Family Care: No Living arrangements: alone Spiritual care concerns: No Anes - Eval Final PreProcedure Day of Procedure 04/21/23 07:09 Patient weight: overweight Heart: regular rate and rhythm Lungs: clear to auscultation Airway: Mallampati scale class II Neurological: alert and oriented Last oral intake: >/= 8 hours ASA classification: II Emergent: yes Anesthetic plan: proceed Anesthesia type and monitoring: general ETT and standard monitoring Results Review: All pre-operative results and documents have been reviewed as part of the pre-operative evaluation. Informed Consent: The patient's anesthetic plan and its attendant risks and benefits were discussed with the patient/family/POA. Questions were
[2023-04-21] MEDS: LACTATED RINGERS 1,000 ML 30 ML IV CONT ×2 (07:25→08:31)
--- NOTE | 2023-04-21 08:11 | W.PM.PROC2 ---
Procedure Note - Detailed Date of Procedure 04/21/23 Pre-op Diagnosis Posttonsillectomy hemorrhage Post-op Diagnosis Same Procedure Performed control of post tonsillectomy hemorrhage Surgeon Rajeev Zhu MD Anesthesia General Indications see above Findings scant bleeding /using left tonsillar fossa right side had a very small pumping vessel mid lower pole Description of Procedure patient identified consent verified. Patient brought operating. Time-out performed. General anesthesia induced endotracheal tube secured. Patient prepped draped position procedure confirm 2nd time-out performed. McIvor mouth gag inserted revealing tonsils described above sorry tonsillar fossa described above. Moist tonsil ball was utilized to gently remove the fibrinous 3 from the left side any oozing vessels were cauterized with Bovie suction electrocautery setting of 12. Right side had a small pumping vessel mid lower pole this was cauterized with Bovie suction electrocautery. McIvor mouth gag was again lowered for 30 seconds reopened to reveal no further bleeding. Total blood loss about 1 cc. Patient tolerated the procedure well. There no complications. Care the patient given back to Anesthesiology. Patient taken to PACU. Estimated Blood Loss 1 Drains No Packing No Pathology None sent Complications No immediate complications Condition Stable Disposition PACU [facility] Billing Surgery - Charge Forward: Surgery Billing
== END 2023-04-21 09:37 | disposition home or self-care (01) ==
LOC: ANHED 06:44 → ANHOUTPT 06:45
PROVIDERS: Emergency Provider Emergency Medicine; PCP Otolaryngology; Visit Provider Otolaryngology
PROC: (CPT 42960; principal; 2023-04-21 07:30)
DX: J95.830 Postprocedural hemorrhage of a respiratory system organ or structure following a respiratory system procedure (principal); Y83.8 Other surgical procedures as the cause of abnormal reaction of the patient, or of later complication, without mention of misadventure at the time of the procedure
CPT/HCPCS: 42960; 36415; 80048; 85025; 86850; 86900; 86901; J0330; J1100; J2250; J2405; J2704; J3010; J7120

== ENCOUNTER 2023-08-15 16:03 | Emergency (ER) | payer OTHER, SELFPAY ==
[2023-08-15 16:11] VITALS: BP 136/81; PULSE 85; RESP 18; TEMP 37.4; O2SAT 100
--- NOTE | 2023-08-15 16:20 | ED.URI ---
HPI - URI/Sore Throat General Chief Complaint: Upper Respiratory Infection Stated Complaint: Cough Time Seen by Provider: 08/15/23 16:20 Source: patient, RN notes reviewed and old records reviewed Mode of arrival: ambulatory Limitations: no limitations History of Present Illness HPI Narrative: 33-year-old male presents to the [facility] with complaints of a cough for 2 weeks. Reports after coughing he does get a little shortness of breath. Feels a rattling in the chest. Denies significant chest pain, abdominal pain. No radiating pain. Denies fevers. Onset (ago): week(s) (2) Related Data Allergies Allergy/AdvReac Type Severity Reaction Status Date / Time No Known Allergies Allergy Verified 08/15/23 16:10 Review of Systems Review of Systems: All systems reviewed & are unremarkable except as noted in HPI and below Constitutional: Constitutional: Reports no additional constitutional complaints Eyes: Eyes: Reports no additional eye complaints ENT: Reports system reviewed and no additional complaints, except as documented Cardiovascular: Cardiovascular: Reports no additional cardiovascular complaints, Denies chest pain and Denies dyspnea Respiratory: Respiratory: Reports as per HPI, Reports chest congestion, Reports cough and Denies dyspnea Gastrointestinal: Gastrointestinal: Reports no additional gastrointestinal complaints, Denies abdominal pain, Denies nausea and Denies vomiting Musculoskeletal: Musculoskeletal: Reports no additional musculoskeletal complaints Integumentary/Breasts: Skin/Breast: Reports system reviewed and no additional complaints, except as docu Neurologic: Reports system reviewed and no additional complaints, except as documented Psychiatric: Psychiatric: Reports no additional psychiatric complaints Allergic/Immunologic: Allergic/Immunologic: Reports no additional allergic/immunologic complaints [facility] Surgical History Surgical History History of tonsillectomy [place] teeth extracted Family History Family History Mother No problems noted. Father Diabetes mellitus Social History Social History Smoking status: Never smoker Alcohol intake: current Alcohol use details: social Lack of Transportation: No Lack of Food: Never True Current Housing: I Have Housing Concerned About Future Housing: No Difficulty Paying Gas/Electric Bills: No Difficulty Paying for Meds: No Currently Unemployed: No Education: Trade/Vocational Certificate Difficulty w/ Childcare or Family Care: No Living arrangements: alone Spiritual care concerns: No Comments At the time of my signature, I reviewed and agree with the nursing past medical, surgical, social, and family history. There is no relevant family history pertinent to the patient complaint. Exam Const: General: cooperative, healthy appearing, comfortable, no acute distress, well developed, alert and well nourished Nutritional Appearance: well nourished Orientation/consciousness: patient oriented x3 Limitations: no limitations HENMT: Head: normal to inspection Ears: hearing grossly normal bilaterally, external ears normal, TM's normal bilaterally and EAC's normal Face/Nose/Sinus: Normal external nose present, Normal nares present, Normal nasal mucous membranes and turbinates present, normal facial exam and face symmetric Face and sinus: normal facial exam, sinuses nontender and face symmetric Mouth: Yes Normal oral and palatal mucosa present, Yes lip normal and Yes moist mucous membranes Throat: posterior oropharynx normal, uvula midline and postnasal drainage Eyes: General: appearance normal, both eyes and all related structures Alignment and Position: alignment normal Periorbital: periorbital findings normal Pupils: Equal, round and reactive pupils present
== END 2023-08-15 16:36 | disposition home or self-care (01) ==
PROVIDERS: Emergency Provider Nurse Practitioner; PCP Nurse Practitioner
DX: J40 Bronchitis, not specified as acute or chronic (principal)
CPT/HCPCS: 99213; G0463

== ENCOUNTER 2024-07-15 11:15 | Outpatient (CLI) | payer BC, SELFPAY ==
[2024-07-15 18:54] LABS: Basophils Percent Auto 0.4 % (0.2-1.2); Eosinophils Absolute Auto 0.2 K/mm3 (0-0.3); Hemoglobin 15.5 g/dL (14.0-18.0); Immature Granulocyte Absolute 0.03 K/mm3 (0.00-0.031); Immature Granulocyte Percent A 0.5 % (0-0.5); Lymphocytes Absolute Auto 2.05 K/mm3 (0.9-3.2); Lymphocytes Percent Auto 36.4 % (18.3-44.2); Mean Corpuscular HGB Conc 34.4 g/dl (32-36); Mean Corpuscular Volume 92.8 fl (80-100); Mean Platelet Volume 10.5 fl (7.4-10.4); Monocytes Absolute Auto 0.5 K/mm3 (0.1-0.6); Monocytes Percent Auto 8.9 % (2.6-8.5); Neutrophils Absolute Auto 2.9 K/mm3 (1.3-6.7); Neutrophils Percent Auto 50.8 % (45.5-73.1); Platelet Count Result 238 k/mm3 (150-375); Red Blood Count 4.85 M/mm3 (4.6-6.20); Red Cell Distribution Width 11.2 % (11.5-14.5); White Blood Count 5.6 K/mm3 (4.5-10.0)
[2024-07-15 19:03] LABS: Alanine Aminotransferase 26 U/L (6-50); Albumin Level 4.6 g/dL (3.5-5.1); Alkaline Phosphatase 72 U/L (38-126); Anion Gap 10 mmol/L (4-12); Aspartate Amino Transferase 37 U/L (17-59); Bilirubin,Total 0.9 mg/dL (0.2-1.3); Blood Urea Nitrogen 19 mg/dL (9-20); Calcium 9.8 mg/dL (8.4-10.2); Carbon Dioxide 30 mmol/L (22-30); Chloride 100 mmol/L (98-107); Cholesterol 216 mg/dL (0-200); Estimated Glomerular Filt Rate > 60; Glucose 85 mg/dL (65-110); HDL Direct 48 mg/dL; Potassium 4.4 mmol/L (3.4-5.0); Sodium 140 mmol/L (137-145); Triglycerides 64 mg/dL (<150)
[2024-07-15 19:13] LABS: LDL Cholesterol Direct 138 mg/dL
[2024-07-20 16:39] LABS: Testosterone Free 70.1 pg/mL (35.0-155.0); Testosterone Total 354 ng/dL (250-1100)
== END 2024-07-15 11:16 | disposition home or self-care (01) ==
LOC: ANHGOSHLAB 11:16
PROVIDERS: PCP Nurse Practitioner; Visit Provider Nurse Practitioner
DX: R53.83 Other fatigue (principal); Z13.220 Encounter for screening for lipoid disorders; Z13.29 Encounter for screening for other suspected endocrine disorder
CPT/HCPCS: 36415; 80053; 80061; 84402; 84403; 85025

== ENCOUNTER 2025-01-02 22:04 | Emergency (ER) | payer OTHER, SELFPAY ==
[2025-01-02 22:18] VITALS: BP 144/98; PULSE 83; RESP 17; TEMP 36.4; O2SAT 99
[2025-01-02 23:00] VITALS: O2SAT 99
[2025-01-02 23:08] LABS: Influenza A QL RT-PCR Negative (Negative); Influenza B QL RT-PCR Negative (Negative); RSV RNA, RT-PCR Negative (Negative); SARS-CoV-2 RNA PCR Negative (Negative)
--- NOTE | 2025-01-02 23:53 | ED.GENADULT ---
HPI - General Adult General Chief complaint: Upper Respiratory Infection Stated complaint: Cough for last couple days, cough is lightheaded Time Seen by Provider: 01/02/25 23:48 History of Present Illness HPI narrative: Patient is a 34-year-old gentleman presents emergency department with chief complaint of cough patient states been gone for the last week. The patient states that he feels as though needs to cough material up but cannot clear his lungs. The patient does report that he previously has had bronchitis before in the past and reports that he used an albuterol inhaler in the past. The patient reports that whenever he is cough he gets a little lightheaded Related Data Home Medications ?Medication ?Instructions ?Recorded ?Confirmed ?Last Taken ?Type dtgjrt-spdwza-ssardpobj-multivit,min-FA tablet PO 07/15/24 07/15/24 Unknown History 2 gram-200 mcg chewable tablet omega-3 fatty acids-fish oil 300 cap PO 07/15/24 07/15/24 Unknown History mg-500 mg capsule (Fish Oil) Allergies Allergy/AdvReac Type Severity Reaction Status Date / Time No Known Allergies Allergy Verified 07/15/24 10:49 Review of Systems Review of Systems: A 10 system review of systems was completed on the patient and is negative except for what is stated in the HPI. Nursing and ancillary documentation was reviewed. [facility] Surgical History Surgical History History of tonsillectomy [place] teeth extracted Family History Family History Mother No problems noted. Father Diabetes mellitus Social History Social History Smoking status: Never smoker Alcohol intake: current Alcohol use details: social Lack of Transportation: No Lack of Food: Never True Current Housing: I Have Housing Concerned About Future Housing: No Difficulty Paying Gas/Electric Bills: No Difficulty Paying for Meds: No Currently Unemployed: No Education: Trade/Vocational Certificate Difficulty w/ Childcare or Family Care: No Living arrangements: alone Spiritual care concerns: No Exam Narrative: GENERAL: Well-appearing, well-nourished, and in no acute distress. HEAD: Normocephalic, atraumatic. EYES: PERRLA and EOMI. ENT: Nares clear, no rhinorrhea or epistaxis. Mucous membranes moist. NECK: Supple. CHEST: Clear to auscultation. No respiratory distress. HEART: Regular rate and rhythm. No murmur heard. Normal peripheral pulses. ABDOMEN: Soft, nontender, nondistended, normal active bowel sounds. EXTREMITIES: Normal range of motion. No edema. SKIN: Warm, dry, no rash. NEURO: No focal deficits. Alert and oriented x3. PSYCH: Normal mood and affect. Course Vital Signs Vital signs: Vital Signs Temperature 36.4 C 01/02/25 22:18 Pulse Rate 83 01/02/25 22:18 Respiratory Rate 17 01/02/25 22:18 Blood Pressure 144/98 H 01/02/25 22:18 Pulse Oximetry 99 01/02/25 22:18 Oxygen Delivery Room Air 01/02/25 22:18 Temperature 36.4 C 01/02/25 22:18 Pulse Rate 83 01/02/25 22:18 Respiratory Rate 17 01/02/25 22:18 Blood Pressure 144/98 H 01/02/25 22:18 Pulse Oximetry 99 01/02/25 23:00 Oxygen Delivery Room Air 01/02/25 23:00 Medical Decision Making MDM Narrative Medical decision making narrative: Differential diagnosis includes viral illness, COVID, flu, RSV Patient's vital signs are within normal limits This time the patient appears to have more of an acute upper respiratory infection most likely viral. The patient was instructed if his symptoms continue on for 2 weeks at that time he may need antibiotics for bacterial infection Vital Signs Vital Signs: Vital Signs Temperature 36.4 C 01/02/25 22:18 Pulse Rate 83 01/02/25 22:18 Respiratory Rate 17 01/02/25 22:18 Blood Pressure 144/98 H 01/02/25 22:18 Pulse Oximetry 99 01/02/25 22:18 Oxygen Delivery Room Air 01/02/25 22:18 Temperature 36.4 C 01/02/25 22:18 Pulse Rate 83 01/02/25 22:18 Respiratory Rate 17 01/02/25 22:18 Blood Pressure 144/98 H 01/02/25 22:18 Pulse Oximetry 99 01/02/25 23:00 Oxygen Delivery Room Air 01/02/25 23:00 Lab Data Labs: Lab Results 01/02/25 Range/Units 22:19 Influenza A (RT-PCR) Negative (Negative) Influenza B (RT-PCR) Negative (Negative) RSV (RT-PCR) Negative (Negative) SARS-CoV-2 RNA (RT-PCR) Negative (Negative) Discharge Plan Discharge Clinical Impression: Acute upper respiratory infection Patient Disposition: Home, Self-Care Condition: Stable Instructions: Antibiotic Form, Upper Respiratory Infection (ED) Patient Language: Georgian Prescriptions: New albuterol sulfate 90 mcg/actuation HFA aerosol inhaler 2 puff inhalation QID PRN (Reason: shortness of breath or wheezing) Qty: 8.5 0RF benzonatate 200 mg capsule 200 mg PO TID PRN (Reason: cough) Qty: 21 0RF prednisone 20 mg tablet 40 mg PO DAILY 5 Days Qty: 10 0RF No Action zmevoy-lcxuaj-eirejk-mv-min-FA 2-200 gram-mcg tablet,chewable PO Fish Oil 300-500 mg capsule PO Follow-up/Referrals: Chapis Squires PERSONAL CARER [Primary Care Provider] - Time of Disposition: 23:56
[2025-01-03 00:01] VITALS: BP 138/88; PULSE 88; RESP 17; O2SAT 98
[2025-01-03] MEDS: BENZONATATE 100 MG CAPSULE 200 MG PO (00:07)
[2025-01-03] MEDS: predniSONE 20 MG TABLET 60 MG PO (00:07)
== END 2025-01-03 00:08 | disposition home or self-care (01) ==
PROVIDERS: Emergency Provider Emergency Medicine; PCP Nurse Practitioner
DX: J06.9 Acute upper respiratory infection, unspecified (principal); Z20.822 Contact with and (suspected) exposure to COVID-19
CPT/HCPCS: 87637; 99283; A9270; J7512